=== PATIENT | female | born 1960 | race Caucasian/White ===

== ENCOUNTER → 2017-11-30 | Outpatient (CLI) | payer BC ==
[~2017-11-30] MED LIST: DIAZ2 PO; GABA100 PO; HYDACE5 PO; Hydrochloroth12.5 MG PO; LORA.5 PO; OXYACE7.5T PO; Omeprazole20 M1; PROGESTERONE M100 GM MC; Percocet 5-3251 EACH PO; ROBITUSSIN OTC; RXOXYACE PO; SERT25 PO; TRIHYD253A; ZOLP10 PO
== END | disposition home or self-care (01) ==
LOC: LAB EV 16:58 → LAB SHORT 16:58
DX: R30.0 Dysuria (principal)
CPT/HCPCS: 87086

== ENCOUNTER 2020-07-28 16:17 | Emergency (ER) | payer BC ==
[~2020-07-28] VITALS: Ht 167.6 cm; Wt 83.9 kg
[2020-07-28] MEDS ORDERED: LOSARTAN POTASS25 M2 PO (16:40)
[2020-07-28 16:57] LABS: BASOPHILS ABSOLUTE AUTO 0.06 K/mm3 (0.00-0.23); BASOPHILS PERCENT AUTO 1 % (0-2); EOSINOPHILS ABSOLUTE AUTO 0.14 K/mm3 (0.00-0.68); EOSINOPHILS PERCENT AUTO 2 % (0-6); Hematocrit 46.4 % (33.0-51.0); IMMATURE GRAN ABSOLUTE AUTO 0.03 K/mm3 (0.00-0.10); IMMATURE GRAN PERCENT AUTO 0 % (0-1); LYMPHOCYTES ABSOLUTE AUTO 3.41 K/mm3 (0.84-5.20); LYMPHOCYTES PERCENT AUTO 38 % (21-46); MONOCYTES ABSOLUTE AUTO 0.49 K/mm3 (0.16-1.47); MONOCYTES PERCENT AUTO 5 % (4-13); Mean Corpuscular HGB 30.2 pg (26.0-34.0); Mean Corpuscular HGB Conc 32.3 g/dL (31.5-36.5); Mean Corpuscular Volume 93 fL (80-100); Mean Platelet Volume 10.3 fL (9.1-12.4); NEUTROPHILS ABSOLUTE AUTO 4.89 K/mm3 (1.96-9.15); NEUTROPHILS PERCENT AUTO 54 % (41-73); Platelet Count 231 K/mm3 (150-400); RDW Standard Deviation 44.2 fL (35.1-46.3); Red Blood Cell Count 4.97 M/mm3 (3.80-5.20); White Blood Cell Count 9.02 K/mm3 (4.00-11.30)
[2020-07-28 17:11] LABS: Albumin, Blood 3.6 g/dL (3.4-5.0); Albumin/Globulin Ratio 0.9 (0.8-1.8); Bilirubin, Total 0.2 mg/dL (0.1-1.0); Bun/Creatinine Ratio 11.8 (12.0-20.0); Calcium, Blood 9.6 mg/dL (8.5-10.1); Creatinine, Blood 1.02 mg/dL (0.40-1.00); Globulin, Blood 4.1 g/dL (2.2-4.0); Potassium, Blood 3.3 mmol/L (3.5-5.5); Total Protein, Blood 7.7 g/dL (6.4-8.2)
[2020-07-28 17:13] LABS: International Normalized Ratio 0.94; Prothrombin Time Results 10.1 Sec (9.7-11.5)
[2020-07-28] MEDS ORDERED: LORAZEPAM0.5 MG PO (19:18)
== END 2020-07-28 19:52 | disposition short-term general hospital (02) ==
LOC: ER 16:17
PROVIDERS: Physician Assistant
DX: G93.89 Other specified disorders of brain (principal); R20.2 Paresthesia of skin; I10 Essential (primary) hypertension; F41.9 Anxiety disorder, unspecified; Z79.899 Other long term (current) drug therapy; Z87.891 Personal history of nicotine dependence
CPT/HCPCS: 36415; 70450; 80053; 82947; 85025; 85610; 93005; 93010; 99285-25

== ENCOUNTER 2021-11-15 20:59 | Emergency (ER) | payer BC ==
[~2021-11-15] VITALS: Ht 167.6 cm; Wt 79.4 kg
[~2021-11-15 20:59] MED LIST changes: +LORAZEPAM0.5 MG PO; +LOSARTAN POTASS25 M2 PO
== END 2021-11-16 00:10 | disposition home or self-care (01) ==
LOC: ER 20:59
DX: S60.211A Contusion of right wrist, initial encounter (principal); S30.0XXA Contusion of lower back and pelvis, initial encounter; V00.121A Fall from non-in-line roller-skates, initial encounter; Z79.899 Other long term (current) drug therapy; I10 Essential (primary) hypertension; Z87.891 Personal history of nicotine dependence
CPT/HCPCS: 29125; 73110; 99283-25; A9270

== ENCOUNTER 2024-02-02 13:16 | Emergency (ER) | payer BC ==
[~2024-02-02] VITALS: Ht 167.6 cm; Wt 81.2 kg
[2024-02-02] MEDS ORDERED: LOSARTAN-HCTZ1 EACH PO (13:42)
[2024-02-02] MEDS ORDERED: AMLODIPINE BES2.5 MG PO (13:42)
[2024-02-02] MEDS ORDERED: LORA.5 PO (13:43)
[2024-02-02 14:12] LABS: BASOPHILS ABSOLUTE AUTO 0.05 K/mm3 (0.00-0.23); BASOPHILS PERCENT AUTO 1 % (0-2); EOSINOPHILS ABSOLUTE AUTO 0.05 K/mm3 (0.00-0.68); EOSINOPHILS PERCENT AUTO 1 % (0-6); Hematocrit 46.1 % (33.0-51.0); Hemoglobin 15.4 g/dL (11.5-16.0); IMMATURE GRAN ABSOLUTE AUTO 0.02 K/mm3 (0.00-0.10); IMMATURE GRAN PERCENT AUTO 0 % (0-1); LYMPHOCYTES ABSOLUTE AUTO 1.27 K/mm3 (0.84-5.20); LYMPHOCYTES PERCENT AUTO 17 % (21-46); MONOCYTES ABSOLUTE AUTO 0.37 K/mm3 (0.16-1.47); MONOCYTES PERCENT AUTO 5 % (4-13); Mean Corpuscular HGB 31.4 pg (26.0-34.0); Mean Corpuscular HGB Conc 33.4 g/dL (31.5-36.5); Mean Corpuscular Volume 94 fL (80-100); Mean Platelet Volume 9.9 fL (9.1-12.4); NEUTROPHILS ABSOLUTE AUTO 5.59 K/mm3 (1.96-9.15); NEUTROPHILS PERCENT AUTO 76 % (41-73); Platelet Count 221 K/mm3 (150-400); RDW Coefficient Variation 12.8 % (11.7-14.2); RDW Standard Deviation 44.1 fL (35.1-46.3); Red Blood Cell Count 4.91 M/mm3 (3.80-5.20); White Blood Cell Count 7.35 K/mm3 (4.00-11.30)
[2024-02-02 15:00] LABS: Albumin/Globulin Ratio 0.7 (0.8-1.8); Bilirubin, Total 0.4 mg/dL (0.1-1.0); Bun/Creatinine Ratio 17.9 (12.0-20.0); Calcium, Blood 9.2 mg/dL (8.5-10.1); Creatinine, Blood 0.73 mg/dL (0.40-1.00); Globulin, Blood 4.1 g/dL (2.2-4.0); Magnesium, Blood 1.4 mg/dL (1.6-2.4); Potassium, Blood 4.1 mmol/L (3.5-5.5); Total Protein, Blood 7.1 g/dL (6.4-8.2)
[2024-02-02] MEDS ORDERED: Magnesium Sulf 2 GM/Water 50ML 50 ML IV ONE (15:20)
[2024-02-02 17:30] VITALS: BP 144/92
[2024-02-02] MEDS ORDERED: ONDA4ODT MM (17:36)
== END 2024-02-02 18:03 | disposition home or self-care (01) ==
LOC: ER 13:16
PROVIDERS: Student in an Organized Health Care Education/Training Program
DX: R11.2 Nausea with vomiting, unspecified (principal); R53.1 Weakness; I10 Essential (primary) hypertension; Z87.891 Personal history of nicotine dependence; Z79.899 Other long term (current) drug therapy
CPT/HCPCS: 80053; 83735; 85025; 93005; 93010; 96365; 99285-25; J3475

== ENCOUNTER 2024-05-13 11:50 | Observation (INO) | payer BC ==
[~2024-05-13] VITALS: Ht 165.1 cm; Wt 74.4 kg
[~2024-05-13 11:50] MED LIST changes: +AMLODIPINE BES2.5 MG PO; +LOSARTAN-HCTZ1 EACH PO; +ONDA4ODT MM
[2024-05-13 12:59] LABS: Albumin, Blood 3.4 g/dL (3.4-5.0); Albumin/Globulin Ratio 0.8 (0.8-1.8); Bilirubin, Total 0.4 mg/dL (0.1-1.0); Bun/Creatinine Ratio 11.8 (12.0-20.0); Calcium, Blood 9.8 mg/dL (8.5-10.1); Creatinine, Blood 0.93 mg/dL (0.40-1.00); Potassium, Blood 3.3 mmol/L (3.5-5.5); Total Protein, Blood 7.4 g/dL (6.4-8.2)
[2024-05-13 13:14] LABS: BASOPHILS ABSOLUTE AUTO 0.06 K/mm3 (0.00-0.23); BASOPHILS PERCENT AUTO 1 % (0-2); EOSINOPHILS ABSOLUTE AUTO 0.09 K/mm3 (0.00-0.68); EOSINOPHILS PERCENT AUTO 1 % (0-6); Hematocrit 44.2 % (33.0-51.0); Hemoglobin 15.4 g/dL (11.5-16.0); IMMATURE GRAN ABSOLUTE AUTO 0.04 K/mm3 (0.00-0.10); IMMATURE GRAN PERCENT AUTO 0 % (0-1); LYMPHOCYTES PERCENT AUTO 10 % (21-46); MONOCYTES ABSOLUTE AUTO 0.67 K/mm3 (0.16-1.47); MONOCYTES PERCENT AUTO 6 % (4-13); Mean Corpuscular HGB 32.3 pg (26.0-34.0); Mean Corpuscular HGB Conc 34.8 g/dL (31.5-36.5); Mean Corpuscular Volume 93 fL (80-100); Mean Platelet Volume 10.4 fL (9.1-12.4); NEUTROPHILS ABSOLUTE AUTO 9.35 K/mm3 (1.96-9.15); NEUTROPHILS PERCENT AUTO 83 % (41-73); Platelet Count 196 K/mm3 (150-400); RDW Coefficient Variation 12.9 % (11.7-14.2); RDW Standard Deviation 44.3 fL (35.1-46.3); Red Blood Cell Count 4.77 M/mm3 (3.80-5.20); White Blood Cell Count 11.31 K/mm3 (4.00-11.30)
[2024-05-13 14:24] LABS: Prothrombin Time Results 10.7 Sec (9.7-11.5)
[2024-05-13] MEDS ORDERED: LORazepam 2 MG/ML 1ML Injection IV PRN ×2 (16:25→21:20)
[2024-05-13] MEDS ORDERED: FLU VACC TS2024-25(6MOS UP)/PF 45 MCG/0.5 ML SYRINGE IM SCH (21:10)
[2024-05-13] MEDS ORDERED: NS 1,000 ML IV SCH (21:10)
[2024-05-13] MEDS ORDERED: Potassium Chloride 20 MEQ TabCR PO ONE (22:00)
[2024-05-13] MEDS ORDERED: Lactated Ringer's 1,000 ML IV ONE (22:00)
[2024-05-13 22:28] VITALS: BP 135/84
[2024-05-13 22:39] LABS: Magnesium, Blood 1.8 mg/dL (1.6-2.4); Thyroid Stimulating Hormone 1.67 uIU/mL (0.360-4.800)
[2024-05-13] MEDS ORDERED: Famotidine 20 MG Tab PO SCH (23:25)
[2024-05-13] MEDS ORDERED: OxyCODONE 10/Acetamin 325 TABLET PO PRN (23:30)
[2024-05-14 00:06] LABS: Adenovirus Not Detected (NOT DETECT); Bordetella pertussis Not Detected (NOT DETECT); Chlamydophila pneumoniae Not Detected (NOT DETECT); Coronavirus 229E Not Detected (NOT DETECT); Coronavirus HKU1 Not Detected (NOT DETECT); Coronavirus NL63 Not Detected (NOT DETECT); Coronavirus OC43 Not Detected (NOT DETECT); Human Metapneumovirus Not Detected (NOT DETECT); Human Rhinovirus/Enterovirus Not Detected (NOT DETECT); Influenza A/2009-H1 Not Detected (NOT DETECT); Influenza A/H1 Not Detected (NOT DETECT); Influenza A/H3 Not Detected (NOT DETECT); Influenza B Not Detected (NOT DETECT); Mycoplasma pneumoniae Not Detected (NOT DETECT); Parainfluenza Virus 1 Not Detected (NOT DETECT); Parainfluenza Virus 2 Not Detected (NOT DETECT); Parainfluenza Virus 3 Not Detected (NOT DETECT); Parainfluenza Virus 4 Not Detected (NOT DETECT); Respiratory Syncytial Virus Not Detected (NOT DETECT); SARS-Cov-2 (COVID-19), BioFire Not Detected (NOT DETECT)
[2024-05-14 05:06] LABS: Hematocrit 37.1 % (33.0-51.0); Hemoglobin 12.7 g/dL (11.5-16.0); Mean Corpuscular HGB 32.3 pg (26.0-34.0); Mean Corpuscular HGB Conc 34.2 g/dL (31.5-36.5); Mean Corpuscular Volume 94 fL (80-100); Platelet Count 152 K/mm3 (150-400); RDW Standard Deviation 45.2 fL (35.1-46.3); Red Blood Cell Count 3.93 M/mm3 (3.80-5.20); White Blood Cell Count 8.52 K/mm3 (4.00-11.30)
[2024-05-14 05:12] VITALS: BP 135/85
[2024-05-14 05:35] LABS: Albumin, Blood 2.6 g/dL (3.4-5.0); Albumin/Globulin Ratio 0.8 (0.8-1.8); Bilirubin, Total 0.4 mg/dL (0.1-1.0); Bun/Creatinine Ratio 10.6 (12.0-20.0); Calcium, Blood 8.9 mg/dL (8.5-10.1); Creatinine, Blood 0.66 mg/dL (0.40-1.00); Globulin, Blood 3.2 g/dL (2.2-4.0); Magnesium, Blood 1.7 mg/dL (1.6-2.4); Total Protein, Blood 5.8 g/dL (6.4-8.2)
--- NOTE | 2024-05-14 06:06 | NUR ---
PT ARRIVED TO FLOOR SHORTLY AFTER 2200. PT WAS ABLE TO TRANSFER FROM STRETCHER TO BED UNASSISTED. THEN PT WAS ABLE TO WALK TO BATHROOM - A LITTLE UNSTEADY, PLAN TO USE BSC UNTIL PT IS MORE STABLE ON HER FEET. 1L LR ADMINISTERED, NS RUNNING AT 150 ML/HR. POTASSIUM REPLACED. VSS. PT DOES NOT REPORT NUMBNESS BUT STATES SHE FEELS WEAK AND UNCOORDINATED, SHE FEELS LOSS OF EQUILIBRIUM WHEN STANDING.
[2024-05-14 06:39] LABS: Source, Urine Clean Catch
[2024-05-14 06:56] LABS: Appearance, Urine Clear (Clear); Bilirubin, Urine Neg (Neg); Blood, Urine Neg (Neg); Color, Urine Yellow (P-Yellow); Glucose Qualitative, Urine Neg (Neg); Ketones, Urine Neg (Neg); Leukocyte Esterase, Urine Neg (Neg); Nitrite, Urine Neg (Neg); Protein, Urine Neg (Neg); Specific Gravity, Urine 1.015 (1.003-1.022); Urobilinogen, Urine NORM (Normal)
[2024-05-14 08:02] VITALS: BP 140/78
[2024-05-14] MEDS ORDERED: Fluconazole 100 MG Tab PO SCH (09:00)
[2024-05-14] MEDS ORDERED: Enoxaparin 40 MG/0.4 ML SYR SC SCH (09:00)
[2024-05-14] MEDS ORDERED: AmLODIPine Besylate 5 MG Tab PO SCH (09:00)
[2024-05-14] MEDS ORDERED: Lidocaine 2% Viscous Soln 20 ML,Nystatin 100,000 Unit/ml Susp 20 ML,Mag Hydrox/Al Hydro... MT PRN (15:35)
[2024-05-14 15:47] VITALS: BP 150/95
--- NOTE | 2024-05-14 18:01 | NUR ---
VSS, A-Ox3 disoriented to time at times, denies SOB, states 7 out of 10 pain that was well managed with prn percocet, ambulates with 1x assist and walker, on RA. Lungs diminished, heart regular, bowel sounds normative, content of urine. Pt can make needs known, call munoz in hand, bed in lowest position.
[2024-05-14 19:29] VITALS: BP 135/81
--- NOTE | 2024-05-15 03:53 | NUR ---
TRY ON BASTER SUMMARY NO ACUTE CHANGES OVERNIGHT. SEE ASSESSMENT/VS CHARTING. PT IS GETTING MUCH STRONGER. ABLE TO WALK EASILY, WITH SUPERVISION, TO THE BATHROOM WITH NO WALKER.
[2024-05-15 04:48] VITALS: BP 152/83
--- NOTE | 2024-05-15 05:46 | NUR ---
BACTERIOLOGIST MEDICAL SUMMARY NO SIGNIFICANT CHANGES OVERNIGHT. PT HAD ONE EPISODE OF SEVERE ANXIETY AND RIPPED OFF HER HOSPITAL BRACELET BUT SHE WAS EASILY CALMED WITH 1-ON-1 ATTENTION AND 0.5MG OF LORAZEPAM. SHE HASNT BEEN SLEEPING WELL AND AFTER A LONG DISCUSSION WITH PT, SHE ATTRIBUTES HER PANIC ATTACK TO A LACK OF SLEEP. PT CALLED HER GRANDSON WHO AGREES TO COME IN NOW TO SIT WITH HER.
[2024-05-15 07:15] VITALS: BP 147/91
[2024-05-15] MEDS ORDERED: OxyCODONE 5 mg/Acetamin 325 mg TABLET PO PRN (08:05)
[2024-05-15 14:58] VITALS: BP 132/80
--- NOTE | 2024-05-15 18:30 | NUR ---
VSS, A-OX4 slightly lethergic at times, denies SOB, states 7 out of 10 pain that was well managed with percocet, ambulates with 1x assist and walker, on RA. Lungs diminished, heart regular, bowel sounds normative, on regular diet eating 25-75% of meals. Pt can make needs known, call munoz in hand, bed in lowest position.
[2024-05-15 19:22] VITALS: BP 136/89
--- NOTE | 2024-05-15 20:46 | NUR ---
NEW T-ORDER FROM ON-CALL HOSPITALIST JAME: "COLACE 100MG PO BID PRN." ENTERED TO [employer] BY THIS SLOT FLOOR ATTENDANT (SEE EMAR.)
[2024-05-15] MEDS ORDERED: Docusate Sodium 100 MG Cap PO PRN (20:50)
--- NOTE | 2024-05-16 01:53 | NUR ---
PHONE CALL MADE TO ON-CALL HOSPITALIST . NEW ORDER RECEIVED VIA [employer] (SEE EMAR,) 1MG ATIVAN IV ONCE. ADMINISTERED ORDERED. PT IS AGITATED, ORIENTED X1, SELF ONLY, CONFUSED. PT REFUSES ASSISTANCE FROM STAFF, IMPULSIVELY ATTEMPTING TO AMBULATE BETWEEN COMMODE, RECLINER AND HOSPITAL BED. 2-PERSON ASSIST REQUIRED D/T EXTREMELY HIGH FALL RISK. PT HANGS HER LEGS OUTSIDE OF THE BED AND REFUSES TO KEEP LEGS IN THE BED FOR SAFETY. BED AND CHAIR ALARMS FOR SAFETY. PT CURSING, GOING THROUGH HER BELONINGS. PT HAS PARANOIA "WHY ARE YOU SCANNING MY TEXT MESSAGES", PER PT STATEMENT. PT TOOK OFF HER IV AND WRISTBAND DURING THIS SHIFT. THIS INSTRUMENTATION DESIGNER CALLED PT'S DAUGHTER BREANNA AND INFORMED OF THE UNSAFE SITUATION. WILL HANDOFF TO HAYLEY JOSHI, WHEN PT TRANSFERS TO SCU RM [id number].
[2024-05-16] MEDS ORDERED: LORazepam 2 MG/ML 1ML Injection IV ONE (02:00)
[2024-05-16 02:33] VITALS: BP 148/92
--- NOTE | 2024-05-16 05:23 | NUR ---
SHIFT SUMMARY SINCE ARRIVAL FROM PRIOR ROOM, PATIENT HAS SET OFF ALARM ONCE AND HAS BEEN SLEEPING SINCE. PLEASENT AND COOPERATIVE SO FAR. BED IN LOWEST AND LOCKED POSITION. CALL LIGHT IN PLACE. BED ALARM IS ON. SEE PRIOR NOTE FOR ALTERNATIVE NURSE CARE NOTE.
[2024-05-16 06:59] VITALS: BP 149/92
[2024-05-16] MEDS ORDERED: OLANZapine ODT 5 MG Tab MM PRN (08:00)
--- NOTE | 2024-05-16 12:57 | NUR ---
"Spiritual Care Visit | Nurse Request Pt. is resting and mostly not responsive. Family members and JUTE BAG CLIPPER Benjie are present. It became evidence that the Pts. mother would be the focual point of the spiritual care visit. Facilitated a lengthy life review of the Pt. Identified that the Pt. was a person of john. Mom displayed evidence of both shock, and trust. When it seemed apporpriate this financial institution vice president prayed for the Pt. Afterward Pt. attempted to wake up. Pts. mom verbalized gratitude for the spiritual care visit and welcomed this financial institution vice president to return."
[2024-05-16 15:29] VITALS: BP 134/85
[2024-05-16] MEDS ORDERED: Bisacodyl 10 MG Supp PR PRN (15:30)
[2024-05-16] MEDS ORDERED: dexAMETHasone 4 MG TAB PO SCH (17:30)
--- NOTE | 2024-05-16 18:39 | NUR ---
SHIFT SUMMARY PATIENT VERBALIZING ZHU AT START OF SHIFT OVER EYES. PATIENT FOLLOWING DIRECTIONS AND ANSWERING QUESTIONS. PATIENT UP TO COMMODE MULTIPLE TIMES TODAY WITH 2 PERSON ASSIST. PATIENT MEDICATED WITH PERCOCET FOR HEADACHE WITH GOOD RESULTS. PATIENT RESTED WELL AFTER PERCOCET. PATIENT NOT ATTEMPTING TO GET OUT OF BED OR RESTLESS TODAY. PLAN TO DO LP TOMORROW SINCE PATIENT GIVEN LOVENOX TODAY. FAMILY AT BEDSIDE MOST OF THE DAY. DR SAMUEL SPOKE IN DETAIL TO DAUGHTER AND MOTHER RELATED TO PLAN FOR PATIENT AND PROVIDED INFORMATION TO FAMILY. DR SAMUEL TO REACH OUT TO DR. RIVREA REGARDING FAMILY CONCERNS RELATED TO HX OF CA.
[2024-05-16 19:57] VITALS: BP 141/88
[2024-05-17 04:19] VITALS: BP 136/99
--- NOTE | 2024-05-17 05:24 | NUR ---
SHIFT SUMMARY PT A&Ox4 AT START OF SHIFT BUT BECAME MORE CONFUSED EARLY IN THE MORNING. PT THOUGHT SHE WAS AT HOME BUT ABLE TO BE REORIENTED. PT C/O SLIGHT HEADACHE AT START OF SHIFT BUT DECLINED PAIN MEDICATION. NO OTHER C/O PAIN. PT IMPULSIVE. BED ALARM ON T/O NIGHT. VSS. PT CURRENTLY UP IN CHAIR WITH CHAIR ALARM AND CALL LIGHT IN REACH.
[2024-05-17 07:11] VITALS: BP 130/78
[2024-05-17] MEDS ORDERED: Polyethylene Glycol 3350 17 gm PO SCH (09:00)
--- NOTE | 2024-05-17 11:23 | NUR ---
PT TAKEN FOR LUMBAR PUNCTURE @1120
[2024-05-17 12:54] LABS: RBC Count, CSF 5 /mm3 (0-0); WBC Count, CSF 14 /mm3 (0-5)
[2024-05-17 13:12] LABS: RBC Count, CSF 3 /mm3 (0-0); WBC Count, CSF 13 /mm3 (0-5)
[2024-05-17 13:48] LABS: Cryptococcus Neoformans/Gattii Not Detected (NOT DETECT); Enterovirus Not Detected (NOT DETECT); Escherichia Coli K1 Not Detected (NOT DETECT); Haemophilus Influenza Not Detected (NOT DETECT); Herpes Simplex Virus 1 Not Detected (NOT DETECT); Herpes Simplex Virus 2 Not Detected (NOT DETECT); Human Herpesvirus 6 Not Detected (NOT DETECT); Human Parechovirus Not Detected (NOT DETECT); Listeria Monocytogenes Not Detected (NOT DETECT); Neisseria Meningitidis Not Detected (NOT DETECT); Streptococcus Agalactiae Not Detected (NOT DETECT); Streptococcus Pneumoniae Not Detected (NOT DETECT); Varicella Zoster Virus Not Detected (NOT DETECT)
[2024-05-17 13:55] LABS: Lymphocytes, CSF 31 % (40-80); Monocytes, CSF 68 % (15-45); Neutrophils, CSF 1 % (0-6)
[2024-05-17 14:08] LABS: Lymphocytes, CSF 50 % (40-80); Monocytes, CSF 50 % (15-45)
[2024-05-17 14:10] LABS: Appearance, CSF Clear (Clear); Color, CSF No Color (No Color)
[2024-05-17 14:12] LABS: Appearance, CSF Clear (Clear); Color, CSF No Color (No Color)
[2024-05-17 14:40] VITALS: BP 136/90
--- NOTE | 2024-05-17 17:56 | NUR ---
SHIFT SUMMARY: PT A/O X4. PLEASANT AND COOPERATIVE WITH CARE. PT TAKEN DOWN FOR LUMBAR PUNCTURE TODAY @1123. NO COMPLICATIONS NOTED DURING OR POST PROCEDURE. FLUID SPECIMEN SENT TO LAB. SPOKE WITH DR. SAMUEL REGARDING CSF CULTURE ORDER TO BE OBTAINED. PT WORKED WITH PHYSICAL THERAPY THIS SHIFT. REMAINS UNSTEADY. PT 1P ASSIST USING FWW AND GB. PT DENIED PAIN THIS SHIFT. PLAN FOR PT TO D/C Sunday05/19/24 WITH [facility]. CALL LIGHT IN REACH. AWAITING DINNER IN CHAIR. CHAIR ALARM ON.
[2024-05-17 20:11] VITALS: BP 146/94
[2024-05-18 02:36] VITALS: BP 122/74
--- NOTE | 2024-05-18 04:33 | NUR ---
SHIFT SUMMARY PT A&0x4 AT START OF SHIFT BUT MORE CONFUSED IN THE DIRECTOR OF KNOWLEDGE MANAGEMENT. PT ASKED WHAT THE CODE WAS FOR THE CALL LIGHT SO SHE COULD CALL US AND PT THOUGHT THE SIGN MISSING FROM THE WALL MEANT SHE DID NOT NEED TO CALL US BEFORE GETTING OUT OF BED. PT MORE STEADY ON FEET WHILE AMBULATING TO BATHROOM. BED ALARM. BED IN LOWEST POSITION AND CALL LIGHT IN REACH.
[2024-05-18 07:45] VITALS: BP 126/80
[2024-05-18 15:26] VITALS: BP 133/89
--- NOTE | 2024-05-18 18:23 | NUR ---
SHIFT SUMMARY: PT A/O X4. PLEASANT AND COOPERATIVE WITH CARE. PT STILL HAS NOT HAD BM DESPITE MULTIPLE EFFORTS. PT IS WILLING TO HAVE SUPPOSITORY IF NEEDED. TAKING SCHEDULED AND PRN BOWEL MEDICATIONS. ORIGINAL PLAN FOR PT TO D/C TOMORROW. SPOKE WITH DAUGHTER WHO STATED [facility] WHO WAS ORIGINALLY PLANNING ON BEING AT HOME AT TIME OF D/C NOW IS UNABLE TO BE THERE. SPOKE WITH CASE MANAGEMENT WHO STATED SHE WOULD MAKE A NOTE OF CHANGE. SPOKE WITH PT DAUGHTER AGAIN AND TOLD HER THAT PT ORIGINALLY REFUSED SNF. DAUGHTER STATED PT IS NOT MENTALLY CAPABLE OF MAKING SAID DECISION. NO C/O PAIN THIS SHIFT. VSS. 1P ASSIST c FWW AND GB. CALL LIGHT IN REACH. BED IN LOWEST POSITION.
[2024-05-18 19:16] VITALS: BP 146/84
[2024-05-19 02:55] VITALS: BP 146/83
[2024-05-19 07:49] VITALS: BP 111/74
[2024-05-19] MEDS ORDERED: dexAMETHasone 4 MG TAB PO SCH (08:00)
[2024-05-19] MEDS ORDERED: DEXA2 PO (10:55)
[2024-05-19] MEDS ORDERED: DOCU100 PO (10:55)
[2024-05-19] MEDS ORDERED: MIRALAX17 GM PO (10:56)
[2024-05-19] MEDS ORDERED: PANT20 PO (11:03)
[2024-05-19] MEDS ORDERED: Diflucan100 MG PO (11:03)
[2024-05-19] MEDS ORDERED: Bisacodyl 10 MG Supp PR ONE (11:30)
[2024-05-19] MEDS ORDERED: Lactulose 20 GM/30 ML UDC PO ONE (11:30)
--- NOTE | 2024-05-19 16:30 | NUR ---
VSS, A-Ox4 forgetful and impulisive, denies any pain, denies SOB, ambulates with SB assist and walker, on RA. Lungs clear heart regular, bowel sounds normative, heart regular, bowel sounds normative, had 1x BM during shift after one time supository and latluse. Pt D/C at 1406, D/C instructions given, safety ensured.
== END 2024-05-19 14:00 | disposition home health service (06) ==
LOC: ER 11:50 → MEDS 11:57 → ER 21:05 → MEDS 22:49
PROVIDERS: Internal Medicine; Nurse Practitioner Acute Care; Physician Assistant; Student in an Organized Health Care Education/Training Program; ADMIT Student in an Organized Health Care Education/Training Program
DX: G92.8 Other toxic encephalopathy (principal); R53.1 Weakness; R13.10 Dysphagia, unspecified; I10 Essential (primary) hypertension; F41.9 Anxiety disorder, unspecified; D72.829 Elevated white blood cell count, unspecified; B37.9 Candidiasis, unspecified; Z85.118 Personal history of other malignant neoplasm of bronchus and lung; Z79.899 Other long term (current) drug therapy
CPT/HCPCS: 0202U; 36415; 62328; 70450; 70553; 71045; 72156; 72157; 72158; 80053; 81003; 82306; 83735; 84157; 84443; 85025; 85027; 85610; 87070; 87081; 87205; 87483; 89051; 96361; 96372; 96374; 96376; 97110; 97110-CQ; 97112; 97116; 97116-CQ; 97162; 97165; 97530; 97530-CQ; 97535; 99285-25; A9270; A9579; G0378; J1650; J2060; J7030; J7120